=== PATIENT | male | born 1950 | race Caucasian/White ===

== ENCOUNTER 2020-07-31 13:53 | Outpatient (CLI) | payer MEDICARE, BC, SELFPAY ==
--- NOTE | 2020-07-31 14:01 | USCV_ITS ---
Ezequiel fernandezt Age: 69 Gender: M : 1950 Exam Date: 07/31/2020 14:19 Ordering Phys: Vik Das Technologist: Brenda Ward Exam Location: [facility] Indication: CAD Risk Factors: Previous Vascular Surgery: Right Brachial BP: / Left Brachial BP: / Right Left Velocity (cm/s) Spectral Plaque Velocity (cm/s) Spectral Plaque Syst/Diast Broadening Syst/Diast Broadening 83.10/ 14.80 Prox CCA 66.90 / 12.10 61.40/ 12.40 Mid CCA 65.30 / 12.10 71.80/ 11.00 Distal CCA 54.80 / 8.10 39.60/ 8.10 Prox ICA 42.70 / 8.50 41.00/ 10.30 Mid ICA 36.00 / 10.30 47.60/ 13.20 Distal ICA 40.70 / 15.40 79.20 ECA 66.60 0.78 ICA/CCA 0.65 Antegrade Vertebral Antegrade 34.70/ 12.40 cm/s 20.50/ 5.00 cm/s Bi Subclavian Bi 72.60 68.50 CONCLUSIONS Right ICA stenosis <50%. Left ICA stenosis <50%. Normal antegrade Doppler flow noted in the right vertebral artery. Normal antegrade Doppler flow noted in the left vertebral artery. Sergio Walker MD (Electronically Signed) Final Date: 31 Jul 2020 16:46 S
== END 2020-07-31 13:54 | disposition home or self-care (01) ==
LOC: US 13:56
PROVIDERS: PCP Family Medicine
DX: R42 Dizziness and giddiness (principal); I25.10 Atherosclerotic heart disease of native coronary artery without angina pectoris; I65.23 Occlusion and stenosis of bilateral carotid arteries
CPT/HCPCS: 93880

== ENCOUNTER 2021-03-01 08:02 | Outpatient (CLI) | payer MEDICARE, BC, SELFPAY ==
--- NOTE | 2021-03-01 08:08 | USCV_ITS ---
Rogelio Conklin Age: 70 Gender: M : 1950 Exam Date: 03/01/2021 08:42 Ordering Phys: Krunal Martino MD Technologist: Exam Location: [facility] [place] Indication: HTN Aortic Velocity @ SMA (cm/s) 88.2 RIGHT KIDNEY LEFT KIDNEY Velocity (cm/s) Velocity (cm/s) Sys/Askew Sys/Askew Resistive Index Resistive Index 74.1 / 23.6 0.68 Proximal Renal Artery 72.0 / 21.2 0.71 75.0 / 26.7 0.64 Mid Renal Artery 75.2 / 28.9 0.62 66.1 / 24.1 0.63 Distal Renal Artery 60.4 / 14.1 0.77 81.3 / 26.7 0.67 Hilar 74.6 / 22.5 0.70 55.1 / 17.7 0.68 Upper Pole 40.5 / 12.2 0.70 55.8 / 18.4 0.67 Mid Pole 39.9 / 11.6 0.71 29.2 / 9.6 0.67 Lower Pole 39.2 / 5.1 0.87 0.90 Renal Aortic Ratio 0.85 Accleration Index (cm/sec2) 2486.0 Hilar 1364.0 0 0 1242.0 Upper Pole 1052.0 0 0 635.00 Mid Pole 1114.0 0 479.00 Lower Pole 1193.0 0 134.5 Kidney Length (mm) 118.5 CONCLUSIONS Normal color flow Doppler, peak systolic velocities, Renal/Aortic peak systolic velocity ratio and resistive indices noted in bilateral main and segmental renal arteries. Sergio Walker MD (Electronically Signed) Final Date: 01 March 2021 16:25 S
--- NOTE | 2021-03-01 08:08 | US_ITS ---
WS: [id number] ULTRASOUND RENAL TECHNIQUE: Ultrasound examination of both kidneys. CLINICAL INFORMATION: ESSENTIAL HTN COMPARISON: None. FINDINGS: RIGHT: Right kidney is normal in size and appearance. Echogenicity: Normal. Cortical thickness: 2.0 cm; Normal. Hydronephrosis: None. Perinephric fluid: None. Right kidney measures: 10.6,11.2 cm x 6.5 cm x 6.3 cm. LEFT: Cyst mid and upper pole left kidney measuring 4.7 x 3.2 CM has a more simple appearance today. No vascularity. Left kidney is normal in size and appearance. Echogenicity: Normal. Cortical thickness: 2.3 cm; Normal. Hydronephrosis: None. Perinephric fluid: None. Left kidney measures: 13.3 cm x 5.4 cm x 5.6 cm. Normal visualized aorta. Bladder is decompressed. US/US renal BI* [id number] IMPRESSION: 1. Both kidneys are normal in appearance. No hydronephrosis. 2. Cyst left kidney upper pole measuring 4.7 x 3.2 CM has a more simple appear ance today. This is slightly increased in size compared to 3.4 x 3.5 cm previou s ultrasound 2014 3. Bladder is decompressed.
== END 2021-03-01 08:03 | disposition home or self-care (01) ==
LOC: RAD 08:05
PROVIDERS: PCP Family Medicine; Visit Provider Family Medicine
DX: I10 Essential (primary) hypertension (principal); Q61.01 Congenital single renal cyst
CPT/HCPCS: 76770; 93975

== ENCOUNTER → 2021-09-18 15:12 | Outpatient (BNVA) | payer MEDICARE, BC, SELFPAY | PROVIDERS: Visit Provider Family Medicine | DX: E03.9 Hypothyroidism, unspecified (principal); I10 Essential (primary) hypertension; I51.7 Cardiomegaly; Z76.89 Persons encountering health services in other specified circumstances; N40.0 Benign prostatic hyperplasia without lower urinary tract symptoms | CPT/HCPCS: 80053; 80061; 84153; 84439; 84443; 85025 ==

== ENCOUNTER → 2022-05-23 08:23 | Outpatient (BNVA) | payer MEDICARE, BC, SELFPAY | PROVIDERS: PCP Family Medicine; Visit Provider Urology | DX: C61 Malignant neoplasm of prostate (principal) | CPT/HCPCS: 84153 ==

== ENCOUNTER → 2022-05-27 15:10 | Outpatient (BNVA) | payer MEDICARE, BC, SELFPAY | PROVIDERS: PCP Family Medicine; Visit Provider Family Medicine | DX: E03.9 Hypothyroidism, unspecified (principal); E78.2 Mixed hyperlipidemia; I10 Essential (primary) hypertension; I51.7 Cardiomegaly; N40.0 Benign prostatic hyperplasia without lower urinary tract symptoms | CPT/HCPCS: 80053; 80061; 84153; 84439; 84443; 85025 ==

== ENCOUNTER → 2022-12-31 15:32 | Outpatient (BNVA) | payer MEDICARE, BC, SELFPAY | PROVIDERS: PCP Family Medicine; Visit Provider Family Medicine | DX: N40.0 Benign prostatic hyperplasia without lower urinary tract symptoms (principal) | CPT/HCPCS: 84153 ==

== ENCOUNTER → 2023-04-08 15:08 | Outpatient (BNVA) | payer MEDICARE, BC, SELFPAY | PROVIDERS: PCP Family Medicine; Visit Provider Family Medicine | DX: N40.0 Benign prostatic hyperplasia without lower urinary tract symptoms (principal) | CPT/HCPCS: 84153 ==

== ENCOUNTER → 2023-06-16 15:51 | Outpatient (BNVA) | payer MEDICARE, BC, SELFPAY | PROVIDERS: PCP Family Medicine; Visit Provider Family Medicine | DX: I10 Essential (primary) hypertension (principal); E78.2 Mixed hyperlipidemia; E03.9 Hypothyroidism, unspecified; E55.9 Vitamin D deficiency, unspecified; N40.0 Benign prostatic hyperplasia without lower urinary tract symptoms; J30.9 Allergic rhinitis, unspecified | CPT/HCPCS: 80053; 80061; 82306; 84439; 84443; 85025 ==

== ENCOUNTER 2023-10-15 14:39 | Outpatient (CLI) | payer MEDICARE, BC, SELFPAY | END 2023-10-15 14:40 | disposition home or self-care (01) | LOC: LAB 14:41 | PROVIDERS: PCP Family Medicine; Visit Provider Nurse Practitioner Family | DX: C61 Malignant neoplasm of prostate (principal) | CPT/HCPCS: 36415; 84153 ==

== ENCOUNTER → 2024-02-17 09:35 | Outpatient (BNVA) | payer MEDICARE, BC, SELFPAY | PROVIDERS: PCP Family Medicine; Visit Provider Family Medicine | DX: E55.9 Vitamin D deficiency, unspecified (principal); I51.7 Cardiomegaly; E03.9 Hypothyroidism, unspecified; E78.2 Mixed hyperlipidemia; Z12.5 Encounter for screening for malignant neoplasm of prostate; R79.89 Other specified abnormal findings of blood chemistry; I10 Essential (primary) hypertension | CPT/HCPCS: 80053; 80061; 82306; 82607; 84439; 84443; 85025; G0103 ==

== ENCOUNTER 2024-04-19 08:21 | Outpatient (CLI) | payer MEDICARE, BC, SELFPAY | END 2024-04-19 08:22 | disposition home or self-care (01) | LOC: LAB 08:23 | PROVIDERS: PCP Family Medicine; Visit Provider Nurse Practitioner Family | DX: C61 Malignant neoplasm of prostate (principal) | CPT/HCPCS: 36415; 84153 ==

== ENCOUNTER → 2024-05-26 09:00 | Outpatient (BNVA) | payer MEDICARE, BC, SELFPAY | PROVIDERS: PCP Family Medicine; Visit Provider Family Medicine | DX: R79.89 Other specified abnormal findings of blood chemistry (principal); I51.7 Cardiomegaly; E87.6 Hypokalemia; E55.9 Vitamin D deficiency, unspecified | CPT/HCPCS: 80048; 82306; 82607; 84443 ==

== ENCOUNTER → 2024-08-30 08:48 | Outpatient (BNVA) | payer MEDICARE, BC, SELFPAY | PROVIDERS: PCP Family Medicine; Visit Provider Family Medicine | DX: I10 Essential (primary) hypertension (principal); R42 Dizziness and giddiness; R79.89 Other specified abnormal findings of blood chemistry | CPT/HCPCS: 80048; 82607; 83036 ==

== ENCOUNTER → 2024-09-09 10:04 | Outpatient (BNVA) | payer MEDICARE, BC, SELFPAY | PROVIDERS: PCP Family Medicine; Visit Provider Physician Assistant | DX: G56.02 Carpal tunnel syndrome, left upper limb (principal) | CPT/HCPCS: 73110; 99214 ==

== ENCOUNTER 2024-10-25 10:39 | Outpatient (CLI) | payer MEDICARE, BC, SELFPAY ==
[2024-10-25 12:45] LABS: Prostate Specific Antigen 13.400 ng/mL (0-4)
== END 2024-10-25 10:40 | disposition home or self-care (01) ==
PROVIDERS: PCP Family Medicine; Visit Provider Nurse Practitioner Family
DX: R97.20 Elevated prostate specific antigen [PSA] (principal)
CPT/HCPCS: 36415; 84153

== ENCOUNTER 2024-11-11 06:23 | Day surgery (SDC) | payer MEDICARE, BC, SELFPAY ==
[2024-11-11] VITALS (7 sets, daily range): BP systolic 113–143; BP diastolic 69–89; PULSE 50–62; RESP 18; TEMP 36.2–36.6; O2SAT 93–95; BMI 39.2
--- NOTE | 2024-11-11 06:52 | P.ANESASSM_ITS ---
Pre-Anesthetic Assessment Height/Weight: Height 6 ft Weight 289 lb Temp Pulse Resp BP Pulse Ox O2 Del Method 97.2 F L 52 L 18 126/79 94 Room Air 11/11/24 06:41 11/11/24 06:41 11/11/24 06:41 11/11/24 06:41 11/11/24 06:41 11/11/24 06:46 Preop Diagnosis: Carpal tunnel syndrome Operation Date: 11/11/24 08:00 Proposed Procedures p LEFT Carpal Tunnel Release(Left) - Polo Batista, DO Was Beta Filiberto taken within 24 hours: N/A Was Clonidine taken within 24 hours: N/A Last intake: Intake Last Liquid Date 11/10/24 Last Liquid Time 18:00 Last Solid Date 11/10/24 Last Solid Time 18:00 Social No alcohol and No tobacco Exam alert, oriented x 3, clear to auscultation bilaterally and regular rate & rhythm Anesthetic Plan ASA status: 3 Anesthesia: MAC Other: No prior issues with anesthesia NPO since yesterday evening History of hypertension on valsartan and spironolactone Denies any pulmonary issues other than chronic cough CKD noted on labs Plan for MAC anesthesia with local via surgeon Medications/Allergies Home Medications ?Medication ?Instructions ?Recorded ?Confirmed ?Last Taken ?Type felodipine 5 mg tablet,extended See Rx Instructions .R oute 02/17/24 11/10/24 11/10/24 Rx release 24 hr .COMPLEX #90 tabs finasteride 5 mg tablet 5 mg PO DAILY #90 tabs 02/1611/10/24 11/10/24 Rx levothyroxine 150 mcg tablet See Rx Instructions .Rout e 02/17/24 11/11/24 11/11/24 Rx .COMPLEX #90 tabs rosuvastatin 20 mg tablet See Rx Instructions .Route 1 04/18/23 11/10/24 11/10/24 Rx .COMPLEX #90 tabs spironolactone 25 mg tablet 12.5 mg (1/2 x 25 mg) PO B ID #180 02/17/24 11/10/24 11/10/24 Rx tabs tamsulosin 0.4 mg capsule 0.4 mg PO DAILY #90 caps 11/10/24 11/10/24 Rx valsartan 320 mg tablet See Rx Instructions .Route 1 04/18/23 11/10/24 11/10/24 Rx .COMPLEX #90 tabs cholecalciferol (vitamin D3) 50 50 mcg PO DAILY #90 ca ps 02/25/24 11/10/24 11/10/24 Rx mcg (2,000 unit) capsule montelukast 10 mg tablet See Rx Instructions .Route 0 09/06/24 11/10/24 11/10/24 Rx .COMPLEX #90 tabs cyanocobalamin (vitamin B-12) See Rx Instructions .Rou te 09/07/24 11/10/24 10/10/24 Rx 1,000 mcg/mL injection solution .COMPLEX #25 mL safety needles 25 gauge x 1 #50 ea 09/07/24 09/09/24 Unknown Rx carvedilol 6.25 mg tablet 3.125 mg PO BID 11/10/2411/11/24 History Allergies Allergy/AdvReac Type Severity Reaction Status Date / Time No Known Allergies Allergy Verified 11/11/24 06:42 [facility] Anesthesia Medical History (Updated 09/09/24 @ 10:36 by KEE Metcalf) HTN (hypertension) LVH (left ventricular hypertrophy) Family History Father Aneurysm Other Cancer Social History Smoking and tobacco/nicotine status: never used tobacco/nicotine Alcohol intake: never Substance/Drug Use: never
[2024-11-11] MEDS: acetaminophen 1,000 MG/100 ML PIGGYBACK 400 MG IV (06:59)
--- NOTE | 2024-11-11 07:11 | W.PM.OPSFHP ---
Same Day Surgery H&P Indication for Procedure/HPI DATE OF PROCEDURE: November 11, 2024 CHIEF COMPLAINT/INDICATIONFOR SURGICAL PROCEDURE: Left carpal tunnel syndrome PREOP DIAGNOSIS: Left carpal tunnel syndrome PLANNED PROCEDURE: Operation Date: 11/11/24 08:00 Proposed Procedures p LEFT Carpal Tunnel Release(Left) - Polo Batista, DO Medications/Allergies* Home Medications ?Medication ?Instructions ?Recorded ?Confirmed ?Type carvedilol 6.25 mg tablet 3.125 mg PO BID 11/10/24 11/11/24 History Allergies/Adverse Reactions Allergy/AdvReac Type Severity Reaction Status Date / Time No Known Allergies Allergy Verified 11/11/24 06:42 Current Medications: Generic Name Dose Route Start Last Admin Trade Name Freq PRN Reason Stop Dose Admin Sodium Chloride 1,000 mls @ 30 mls/hr 11/11/24 06:45 11/11/24 06:55 Sodium Chloride 0.9% IV 11/12/24 06:44 30 mls/hr .Q24H ROSETTE Administration Pertinent History/Comorbid Conditions* Medical History (Updated 09/09/24 @ 10:36 by KEE Metcalf) HTN (hypertension) LVH (left ventricular hypertrophy) Family History (Updated 08/09/19 @ 13:52 by Didi Buck RN) Aneurysm Father Cancer Social History Smoking and tobacco/nicotine status: never used tobacco/nicotine Alcohol intake: never Substance/Drug Use: never Pertinent Exam Findings alert, oriented x 3, operative site marked and procedure specific exam findings Today patient examination left upper extremity has positive median nerve compression test at the wrist as well as positive Tinel's at the wrist negative Tinel's at the elbow. Please refer to detail repeat examination on 09/09/2024 listed below: Left Hand exam-positive Tinel's and positive Phalen's test. mild thenar atrophy and no thenar muscle weakness. Full range of motion in fingers and wrist and fingers are warm and well-perfused with normal cap refill under 2 seconds. Radial pulse 2+, no intrinsic muscle weakness noted. Left Elbow exam-negative Tinel's test Recommendations Risks and benefits of procedure reviewed and Patient/family agree to proceed Surgery/Procedure today Other Plans: Patient at this point in time his really evident on clinical examination with positive Tinel's over the carpal tunnel and positive median nerve compression test as well as some appreciable thenar atrophy noted that he has left carpal tunnel syndrome his symptoms are all on the median nerve distribution. This does wake him up at night as well as with activities. At this point time once again reviewed his treatment options this point in time through shared decision making he would like to pursue surgical intervention for a left carpal tunnel release surgery. He understands the ins and outs procedure risk benefits complication alternatives surgery and through shared decision making lets proceed with surgical invention. All questions answered at this time. Coding Level of Care Code Acute Code for [place]
[2024-11-11] MEDS: ceFAZolin 2,000 MG in sodium chloride 0.9% (plus) 50 ML 100 MG IV (08:25)
[2024-11-11] MEDS: ceFAZolin 1,000 mg SDV 1000 MG IVP (08:28)
[2024-11-11] MEDS: lidocaine-epi 1% 20 mL INJ 5 ML INJECTION (08:53)
[2024-11-11] MEDS: ROPivacaine 0.5% SDV 30 mL 25 MG INJECTION (08:53)
--- NOTE | 2024-11-11 08:53 | P.OP_ITS ---
Operative Report Date of procedure: November 11, 2024 Surgeon: Polo Batista DO Procedure: Preop Diagnosis: Left Carpal Tunnel Syndrome Post-op diagnosis: Same Procedure done: 1. Left carpal tunnel release Surgeon: Polo Batista DO Anesthesia: MAC (Local) Estimated blood loss: 3 mL Tourniquet time 3 minutes IV fluids: See anesthesia record Complications: None Findings: See operative report narrative Condition: stable Disposition: same day Brief History: Patient is a pleasant [ 74]year-old [ M ] with left carpal tunnel syndrome. Patient has been worked up in the outpatient setting findings and physical examination consistent with this. We detailed out patient's risk benefits complication alternatives with surgical and nonsurgical treatment options. Through shared decision making, patient agrees to proceed with surgical intervention of the left carpal tunnel release . Patient understands and agrees with current plan. All questions answered. Patient elects to proceed with surgical intervention with carpal tunnel release. Procedure: Patient seen and evaluated in the preoperative holding area. Consent was reviewed and signed with patient. Correct extremity was marked. Patient was seen evaluated by the anesthesia department once cleared for surgery was brought back to the operative suite. Patient was kept on [facility] in supine position all bony prominences were well-padded patient properly secured to the bed. Left upper extremity was then placed onto an armboard. A nonsterile tourniquet was applied to the left upper arm. Patient underwent anesthesia per the anesthesia department. Patient's left upper extremity was then prepped and draped in standard orthopedic fashion. Final timeout performed. Patient received appropriate preoperative antibiotics. Under sterile aseptic technique patient received local anesthesia over the preplanned carpal tunnel incision site. Esmarch was used to exsanguinate the left upper extremity and tourniquet was insufflated to 250 mmHg. A standard mini open left carpal tunnel incision was made. Starting distally at Rodriguez's cardinal line in line with the fourth ray extending proximally distal to the wrist crease centered over the carpal tunnel. Sharp scalpel incision was made through skin and subcutaneous tissue. Self-retaining retractor was placed and the palmar fascia was identified. This was then split longitudinally and direct visualization of the transverse carpal ligament was then made. I then utilizing scalpel feathered through the transverse carpal ligament until I entered the floor of the transverse carpal tunnel ligament into the carpal tunnel. Next I switched to dissection scissors and completed my release of the transverse carpal ligament distally with care to protect the recurrent motor branch. I completely released into the palmar fat and until no entrapment was noted distally. Care was made to protect the superficial palmar arch during my distal dissection. Next, nasal speculum placed proximally for retraction of soft tissue on top of the Transverse carpal ligament. Next the contents of the carpal tunnel where protected and and subsequently utilizing dissection scissors under loupe magnification completely released the transverse carpal ligament proximally into the antebrachial fascia. Care was made to protect the palmar cutaneous branch by keeping my scissors curved ulnarly. Once completely released, I then placed my Rubicon and had appropriate decompression of the carpal tunnel proximally as well as distally. I then inspected the contents of the carpal tunnel which showed an hourglass shape of the median nerve showing its compression. No masses were noted. Tendons appeared healthy. Wound was then thoroughly irrigated. Tourniquet deflated. Hemostasis satisfactory with bipolar electr ocautery. I then closed the incision with interrupted nylon stitches. Xeroform 4 x 4's and a bulky soft dressing was applied to the left upper extremity. Patient was then awakened from anesthesia and taken to PACU in stable condition. Patient tolerated procedure without complications. Disposition: Patient taken to PACU in stable condition recovering well. Dressing clean dry and intact. Patient will receive appropriate discharge instructions as well as pain medication postoperatively. Patient to follow-up with ortho in the office in 2 weeks. They understand they may be weightbearing as tolerated to the left hand. Patient should keep incision clean dry and intact. Patient understands if any questions or concerns may contact the office.
--- NOTE | 2024-11-11 08:59 | W.PM.BPON ---
Date of Procedure: [November 11, 2024] Surgeon: [Dr. Batista, DO] [employer] Supervisor(s): [N/A] Procedure(s) performed: [Left carpal tunnel release] Findings of the procedure(s): [Left carpal tunnel syndrome. Procedure went well and his plan] Estimated blood loss: [3 mL] Specimen(s) removed: [N/A] Post-operative diagnosis: [Left carpal tunnel syndrome]
--- NOTE | 2024-11-11 09:57 | ANE.PACU2 ---
Inpatient post-anesthesia follow up: Airway intact: Yes Vital signs: Temperature 97.8 F Pulse Rate 54 Respiratory Rate 18 Blood Pressure 115/70 Pulse Oximetry 94 Oxygen Delivery Me thod Room Air Oxygen Flow Rate 2 Fraction of Inspir ed Oxygen Hydration adequate: Yes Nausea and vomiting: No Pain level: 1 Mental status: Baseline
== END 2024-11-11 09:57 | disposition home or self-care (01) ==
PROVIDERS: PCP Family Medicine; Visit Provider Student in an Organized Health Care Education/Training Program
PROC: (CPT 64721; principal; 2024-11-11 08:00)
DX: G56.02 Carpal tunnel syndrome, left upper limb (principal); I10 Essential (primary) hypertension
CPT/HCPCS: 64721; J0131; J0690; J1885; J2250; J2704; J2795; J3010; J7030; J9999

== ENCOUNTER → 2024-11-24 08:40 | Outpatient (BNVA) | payer MEDICARE, BC, SELFPAY | PROVIDERS: PCP Family Medicine; Visit Provider Physician Assistant | DX: Z98.890 Other specified postprocedural states (principal) | CPT/HCPCS: 99024 ==

== ENCOUNTER 2025-02-02 09:21 | Outpatient (CLI) | payer MEDICARE, BC, SELFPAY ==
[2025-02-02 10:44] LABS: Prostate Specific Antigen 10.990 ng/mL (0-4)
== END 2025-02-02 09:22 | disposition home or self-care (01) ==
PROVIDERS: PCP Family Medicine; Visit Provider Nurse Practitioner Family
DX: C61 Malignant neoplasm of prostate (principal)
CPT/HCPCS: 36415; 84153

== ENCOUNTER → 2025-02-08 08:15 | Outpatient (BNVA) | payer MEDICARE, BC, SELFPAY | PROVIDERS: PCP Family Medicine; Visit Provider Family Medicine | DX: E55.9 Vitamin D deficiency, unspecified (principal); I10 Essential (primary) hypertension; E03.9 Hypothyroidism, unspecified; I51.7 Cardiomegaly; R79.89 Other specified abnormal findings of blood chemistry | CPT/HCPCS: 80053; 82306; 82607; 83036; 84439; 84443 ==